=== PATIENT | female | born 1940 | race Caucasian/White ===

== ENCOUNTER 2018-11-11 13:49 | Emergency (ER) | payer OTHER ==
[~2018-11-11] VITALS: Ht 157.5 cm; Wt 40.8 kg
[2018-11-11 13:53] VITALS: BP_SYST 122
[2018-11-11] MEDS ORDERED: IBUPROFEN 600 MG TABLET PO ONE (14:15)
[2018-11-11] MEDS ORDERED: LACTULOSE 20 GM/30 ML UDC PO ONE (15:00)
[2018-11-11] MEDS ORDERED: NS 500 ML IV ONE (15:00)
[2018-11-11 15:52] VITALS: BP_SYST 122
== END 2018-11-11 15:52 | disposition home or self-care (01) ==
LOC: SED 13:49
DX: S39.012A Strain of muscle, fascia and tendon of lower back, initial encounter (principal); K59.00 Constipation, unspecified; X58.XXXA Exposure to other specified factors, initial encounter; Y93.89 Activity, other specified; Y92.89 Other specified places as the place of occurrence of the external cause; Y99.8 Other external cause status
CPT/HCPCS: 74176; 99284; J7030

== ENCOUNTER 2018-11-13 22:00 | Emergency (ER) | payer OTHER ==
[~2018-11-13] VITALS: Ht 157.5 cm; Wt 45.4 kg
[2018-11-13 22:05] VITALS: BP_SYST 165
--- NOTE | 2018-11-13 23:17 | NUR ---
Patient to ER bed 04 to gown for evaluation. Side rails up. Report given to CARLOS MCKINNON
[2018-11-13] MEDS ORDERED: METR500T PO (23:28)
[2018-11-13] MEDS ORDERED: TRAM100T34 PO (23:28)
[2018-11-13] MEDS ORDERED: IBUP-1968 PO (23:28)
--- NOTE | 2018-11-13 23:28 | NUR ---
Medication reconciliation completed with information provided by PT. Any prior medication reconciliation on file was reviewed and corrected.
--- NOTE | 2018-11-13 23:30 | NUR ---
Pt came to the ED for ABD pain and lower back pain. Was previously diagnosed with constipation and was prescribed lactulose with no relief. Denies n/v/d or fever. No other complaints/injuries noted. Will cont. to monitor.
--- NOTE | 2018-11-14 00:02 | NUR ---
Looked for pt in room, bathroom and waiting room. Pt no where to be found. ER made aware pt eloped.
== END 2018-11-14 00:02 | disposition home or self-care (01) ==
LOC: SED 22:00
DX: M54.9 Dorsalgia, unspecified (principal); R10.9 Unspecified abdominal pain; Z53.21 Procedure and treatment not carried out due to patient leaving prior to being seen by health care provider